=== PATIENT | female | born 1970 | race Caucasian/White ===

== ENCOUNTER 2016-10-15 11:47 | Emergency (ER) | payer OTHER ==
[~2016-10-15] VITALS: Ht 160 cm; Wt 79.4 kg
[2016-10-15 12:18] VITALS: BP 155/116
[2016-10-15] MEDS ORDERED: ALBU0.0912 INH (12:20)
--- NOTE | 2016-10-15 12:23 | NUR ---
Patient ambulated to bed 06.
--- NOTE | 2016-10-15 12:25 | NUR ---
PT CAME TO ER DUE TO COUGH WITH SOB X2 WEEKS AND RIGHT RIB PAIN;PAIN SCALE OF 5/10;NOM RADIATING PAIN;DENIES SOB/F/N/V AT THIS TIME;HX OF ASTHMA;AAOX4;NO ACUTE DISTRESS NOTED AT THIS TIME;HOB ELEVATED;NEEDS ATTENDED;SAFETY MEASURES INSTITUTED; MADE AWARE OF PT'S CONDITION;
--- NOTE | 2016-10-15 12:44 | NUR ---
PT WENT TO XRAY ACCOMPANIED BY TECH.
--- NOTE | 2016-10-15 13:19 | NUR ---
Dr. Navarro evaluating patient at bedside.
[2016-10-15] MEDS ORDERED: predniSONE 20 MG TAB PO ONE (13:25)
[2016-10-15] MEDS ORDERED: KETOROLAC 60 MG/2 ML VIAL IM ONE (13:25)
[2016-10-15] MEDS ORDERED: ALBUTEROL 0.083% 2.5 MG/3 ML NEBU INH ONE (13:25)
[2016-10-15] MEDS ORDERED: ALBUTEROL SULFATE/IPRATROPIU 3 ML SOL IH ONE (13:25)
--- NOTE | 2016-10-15 13:36 | NUR ---
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
--- NOTE | 2016-10-15 13:39 | NUR ---
RT at bedside to give patient breathing tx
--- NOTE | 2016-10-15 14:00 | NUR ---
PT LYING ON BED;BOYFRIEND AT BEDSIDE;NO ACUTE DISTRESS NOTED AT THIS TIME;WILL CONTINUE TO MONITOR PT.
--- NOTE | 2016-10-15 14:19 | NUR ---
Patient discharged with v/s stable. Written and verbal after care instructions given and explained. Patient alert, oriented and verbalized understanding of instructions. Ambulatory with steady gait. All questions addressed prior to discharge. ID band removed. Patient advised to follow up with PMD. Rx of MOTRIN,SUDAFED,PTREDNISONE AND NORCO given. Patient educated on indication of medication including possible reaction and side effects. Opportunity to ask questions provided and answered.
[2016-10-15 14:20] VITALS: BP 158/83
== END 2016-10-15 14:19 | disposition home or self-care (01) ==
LOC: MED 11:47
DX: R07.89 Other chest pain (principal); R05 Cough; R09.81 Nasal congestion; R06.02 Shortness of breath; J45.909 Unspecified asthma, uncomplicated; I10 Essential (primary) hypertension; F17.200 Nicotine dependence, unspecified, uncomplicated
CPT/HCPCS: 71020; 94640; 96372; 99284; J1885; J7512; J7613; J7620